=== PATIENT | female | born 1960 | race Caucasian/White ===

== ENCOUNTER 2017-07-25 07:57 | Day surgery (SDC) | payer OTHER | END 2017-07-25 22:35 | disposition home or self-care (01) | LOC: RAD 07:57 | PROVIDERS: Radiology Diagnostic Radiology | PROC: B02BYZZ Computerized Tomography (CT Scan) of Spinal Cord using Other Contrast (ICD-10-PCS; principal; 2017-07-25 11:30) | DX: M47.812 Spondylosis without myelopathy or radiculopathy, cervical region (principal); M47.22 Other spondylosis with radiculopathy, cervical region; J45.909 Unspecified asthma, uncomplicated; M54.2 Cervicalgia | CPT/HCPCS: 62302; 72126; Q9967 ==

== ENCOUNTER 2019-02-07 07:16 | Day surgery (SDC) | payer MEDICARE, OTHER ==
--- NOTE | 2019-02-07 10:53 | NUR ---
PT ARRIVED FROM RADIOLOGY VIA BED, A&O X3, DENIES ANY DISCOMFORT AT THIS TIME, BANDAID ON LOWER BACK C/D/I, OOB TO AMBUALTE TO THE BATHROOM, TOLERATED WELL, CONT. TO MONITOR FOR ANY CHANGES, ORIENTED TO ROOM LAYOUT AND CALL SYSTEM.
--- NOTE | 2019-02-07 12:53 | NUR ---
VSS, BANDAID ON LOWER BACK C/D/I, AMBULATED TO THE BATHROOM WITHOUT DIFFICULTY, DC INSTRUCTIONS GIVEN, VERBALIZED UNDERSTANDING, PRINTED DC INSTRUCTIONS GIVEN TO PT.
== END 2019-02-07 12:50 | disposition home or self-care (01) ==
LOC: CT 07:16 → EDSTATUS 08:00 → CT 08:00 → RAD 09:00 → SURS 10:58 → CT 12:50
DX: M51.14 Intervertebral disc disorders with radiculopathy, thoracic region (principal); M47.26 Other spondylosis with radiculopathy, lumbar region; M96.1 Postlaminectomy syndrome, not elsewhere classified; M48.03 Spinal stenosis, cervicothoracic region; M48.02 Spinal stenosis, cervical region; J43.9 Emphysema, unspecified
CPT/HCPCS: 62305; 72126; 72128; 72132; Q9967

== ENCOUNTER → 2020-11-04 | Outpatient (CLI) | payer MEDICARE, OTHER ==
[2020-11-08 10:11] LABS: CHLAMYDIA BY NAA Negative (Negative); GONOCOCCUS BY NAA Negative (Negative); TRICH VAG BY NAA Negative (Negative)
[2020-11-09 14:12] LABS: HPV 16 Negative (Negative); HPV 18 Negative (Negative); HPV OTHER HR TYPES Negative (Negative)
== END | disposition home or self-care (01) ==
LOC: LAB SHORT 19:49 → LAB 19:49
PROVIDERS: Nurse Practitioner
DX: Z12.4 Encounter for screening for malignant neoplasm of cervix (principal)
CPT/HCPCS: 87491; 87591; 87624; 87661; G0123

== ENCOUNTER → 2021-04-28 | Outpatient (CLI) | payer MEDICARE, OTHER | END | disposition home or self-care (01) | LOC: LAB SHORT 08:45 → LAB 08:45 | DX: J02.9 Acute pharyngitis, unspecified (principal) | CPT/HCPCS: 87081 ==

== ENCOUNTER → 2021-06-21 | Outpatient (CLI) | payer MEDICARE, OTHER | LOC: LAB SHORT 07:20 | DX: K21.9 Gastro-esophageal reflux disease without esophagitis (principal) | CPT/HCPCS: 87338 ==

== ENCOUNTER 2021-10-22 19:14 | Emergency (ER) | payer MEDICARE, OTHER ==
[~2021-10-22] VITALS: Ht 170.2 cm; Wt 83.9 kg
[2021-10-22 19:57] LABS: BASOPHILS ABSOLUTE AUTO 0.07 K/mm3 (0.00-0.23); BASOPHILS PERCENT AUTO 1 % (0-2); EOSINOPHILS PERCENT AUTO 4 % (0-6); Hematocrit 43.1 % (33.0-51.0); IMMATURE GRAN ABSOLUTE AUTO 0.01 K/mm3 (0.00-0.10); IMMATURE GRAN PERCENT AUTO 0 % (0-1); LYMPHOCYTES ABSOLUTE AUTO 2.43 K/mm3 (0.84-5.20); LYMPHOCYTES PERCENT AUTO 31 % (21-46); MONOCYTES ABSOLUTE AUTO 0.78 K/mm3 (0.16-1.47); MONOCYTES PERCENT AUTO 10 % (4-13); Mean Corpuscular HGB 30.7 pg (26.0-34.0); Mean Corpuscular HGB Conc 32.5 g/dL (31.5-36.5); Mean Corpuscular Volume 95 fL (80-100); Mean Platelet Volume 9.7 fL (9.1-12.4); NEUTROPHILS ABSOLUTE AUTO 4.35 K/mm3 (1.96-9.15); NEUTROPHILS PERCENT AUTO 55 % (41-73); Platelet Count 278 K/mm3 (150-400); RDW Coefficient Variation 13.2 % (11.7-14.2); RDW Standard Deviation 46.2 fL (35.1-46.3); Red Blood Cell Count 4.56 M/mm3 (3.80-5.20); White Blood Cell Count 7.94 K/mm3 (4.00-11.30)
[2021-10-22 20:15] LABS: Albumin/Globulin Ratio 1.1 (0.8-1.8); Bilirubin, Total 0.3 mg/dL (0.1-1.0); Bun/Creatinine Ratio 28.6 (12.0-20.0); Calcium, Blood 9.3 mg/dL (8.5-10.1); Creatinine, Blood 0.77 mg/dL (0.40-1.00); Globulin, Blood 3.7 g/dL (2.2-4.0); Potassium, Blood 3.7 mmol/L (3.5-5.5); Total Protein, Blood 7.7 g/dL (6.4-8.2)
== END 2021-10-22 23:44 | disposition home or self-care (01) ==
LOC: ER 19:14
PROVIDERS: Physician Assistant
DX: R07.89 Other chest pain (principal); Z88.5 Allergy status to narcotic agent; F17.200 Nicotine dependence, unspecified, uncomplicated
CPT/HCPCS: 36415; 71045; 80053; 84484; 85025; 93005; 93010

== ENCOUNTER → 2022-05-23 | Outpatient (CLI) | payer MEDICARE, OTHER ==
[~2022-05-23] MED LIST: ALBU90OI INH; ASA; CYCL10 PO; EXCEDRIN; FERROUS GLUCON324 M2 PO; LORA10ER PO; PANT40 PO; PRAM.5 PO; ZEBUTAL 50-3251 EAC1 PO
[2022-05-23 13:54] LABS: Anion Gap 7 mmol/L (6-16); Blood Urea Nitrogen 14 mg/dL (8-24); Bun/Creatinine Ratio 18.3 (12.0-20.0); CHOL/HDL RATIO 3.4; CO2, Blood 26 mmol/L (21-32); Calcium, Blood 9.1 mg/dL (8.5-10.1); Chloride, Blood 108 mmol/L (98-108); Cholesterol 227 mg/dL (50-200); Creatinine, Blood 0.77 mg/dL (0.40-1.00); Glomerular Filtration Rate 87 (60-); Glucose, Blood 95 mg/dL (70-99); HDL Cholesterol 66 mg/dL (>39); LDL/HDL RATIO 2.2; Low Density Lipoprotein Chol 147 mg/dL (0-110); Potassium, Blood 3.7 mmol/L (3.5-5.5); Sodium, Blood 141 mmol/L (136-145); Triglycerides 68 mg/dL (30-160); Very Low Density Lipoprot Chol 13 mg/dL (6-32)
== END | disposition home or self-care (01) ==
LOC: LAB SHORT 10:15
PROVIDERS: Nurse Practitioner Family
DX: E78.5 Hyperlipidemia, unspecified (principal); R25.2 Cramp and spasm; R73.03 Prediabetes
CPT/HCPCS: 80048; 80061; 83036

== ENCOUNTER 2022-11-11 19:05 | Emergency (ER) | payer MEDICARE, OTHER ==
[~2022-11-11] VITALS: Ht 170.2 cm; Wt 90.7 kg
[2022-11-11 19:29] VITALS: BP 131/72
[2022-11-11] MEDS ORDERED: CRUTCH2 XX (20:42)
== END 2022-11-11 20:59 | disposition home or self-care (01) ==
LOC: ER 19:05
DX: S92.354A Nondisplaced fracture of fifth metatarsal bone, right foot, initial encounter for closed fracture (principal); X50.1XXA Overexertion from prolonged static or awkward postures, initial encounter; Z88.5 Allergy status to narcotic agent; Z79.899 Other long term (current) drug therapy; K21.9 Gastro-esophageal reflux disease without esophagitis; M19.90 Unspecified osteoarthritis, unspecified site; E78.00 Pure hypercholesterolemia, unspecified; F17.200 Nicotine dependence, unspecified, uncomplicated
CPT/HCPCS: 29515; 73620; 99283-25

== ENCOUNTER → 2024-01-25 | Outpatient (CLI) | payer MEDICARE, OTHER ==
[~2024-01-25] MED LIST changes: +CRUTCH2 XX
[2024-01-25 15:01] LABS: BASOPHILS ABSOLUTE AUTO 0.05 K/mm3 (0.00-0.23); BASOPHILS PERCENT AUTO 1 % (0-2); EOSINOPHILS ABSOLUTE AUTO 0.11 K/mm3 (0.00-0.68); EOSINOPHILS PERCENT AUTO 1 % (0-6); Hematocrit 40.7 % (33.0-51.0); Hemoglobin 12.5 g/dL (11.5-16.0); IMMATURE GRAN ABSOLUTE AUTO 0.02 K/mm3 (0.00-0.10); IMMATURE GRAN PERCENT AUTO 0 % (0-1); LYMPHOCYTES ABSOLUTE AUTO 1.59 K/mm3 (0.84-5.20); LYMPHOCYTES PERCENT AUTO 21 % (21-46); MONOCYTES ABSOLUTE AUTO 0.72 K/mm3 (0.16-1.47); MONOCYTES PERCENT AUTO 9 % (4-13); Mean Corpuscular HGB 27.1 pg (26.0-34.0); Mean Corpuscular HGB Conc 30.7 g/dL (31.5-36.5); Mean Corpuscular Volume 88 fL (80-100); Mean Platelet Volume 10.3 fL (9.1-12.4); NEUTROPHILS PERCENT AUTO 68 % (41-73); Platelet Count 379 K/mm3 (150-400); RDW Coefficient Variation 14.6 % (11.7-14.2); RDW Standard Deviation 46.6 fL (35.1-46.3); Red Blood Cell Count 4.61 M/mm3 (3.80-5.20); White Blood Cell Count 7.69 K/mm3 (4.00-11.30)
[2024-01-25 17:25] LABS: Anion Gap 7 mmol/L (3-11); Blood Urea Nitrogen 20 mg/dL (8-24); Bun/Creatinine Ratio 27.1 (12.0-20.0); CHOL/HDL RATIO 3.6; CO2, Blood 26 mmol/L (21-32); Calcium, Blood 9.3 mg/dL (8.5-10.1); Chloride, Blood 108 mmol/L (98-108); Cholesterol 236 mg/dL (50-200); Creatinine, Blood 0.74 mg/dL (0.40-1.00); Glomerular Filtration Rate 90 (60-); Glucose, Blood 100 mg/dL (70-99); HDL Cholesterol 65 mg/dL (>39); LDL/HDL RATIO 2.4; Low Density Lipoprotein Chol 153 mg/dL (0-110); Sodium, Blood 137 mmol/L (136-145); Triglycerides 89 mg/dL (30-160); Very Low Density Lipoprot Chol 17 mg/dL (6-32)
== END ==
LOC: LAB 12:55 → LAB SHORT 12:55
PROVIDERS: Nurse Practitioner Family
DX: E78.5 Hyperlipidemia, unspecified (principal); R73.03 Prediabetes
CPT/HCPCS: 80048; 80061; 83036; 85025

== ENCOUNTER 2025-03-26 18:49 | Inpatient (IN) | payer MEDICARE, OTHER ==
[~2025-03-26] VITALS: Ht 170.2 cm; Wt 103.4 kg
[~2025-03-26 18:49] MED LIST changes: +AMIT75 PO; +ATOR20; +OMEP20ER PO
[2025-03-26] MEDS ORDERED: ALBU2.5V5 INH (19:41)
[2025-03-26] MEDS ORDERED: ALBU90OI INH (19:41)
[2025-03-26] MEDS ORDERED: Ipratropium/Albuterol SulF 2.5-0.5MG/3 ML Amp INH ONE (20:00)
[2025-03-26] MEDS ORDERED: Albuterol 2.5 MG/3 ML VIAL INH SCH (20:00)
[2025-03-26 20:13] LABS: pH Blood Venous 7.37 (7.34-7.37)
[2025-03-26 21:00] LABS: BASOPHILS ABSOLUTE AUTO 0.10 K/mm3 (0.00-0.23); BASOPHILS PERCENT AUTO 1 % (0-2); EOSINOPHILS ABSOLUTE AUTO 0.28 K/mm3 (0.00-0.68); EOSINOPHILS PERCENT AUTO 3 % (0-6); Hematocrit 36.9 % (33.0-51.0); Hemoglobin 11.5 g/dL (11.5-16.0); IMMATURE GRAN ABSOLUTE AUTO 0.03 K/mm3 (0.00-0.10); IMMATURE GRAN PERCENT AUTO 0 % (0-1); LYMPHOCYTES ABSOLUTE AUTO 2.47 K/mm3 (0.84-5.20); LYMPHOCYTES PERCENT AUTO 25 % (21-46); MONOCYTES ABSOLUTE AUTO 0.95 K/mm3 (0.16-1.47); MONOCYTES PERCENT AUTO 9 % (4-13); Mean Corpuscular HGB Conc 31.2 g/dL (31.5-36.5); Mean Corpuscular Volume 94 fL (80-100); NEUTROPHILS ABSOLUTE AUTO 6.26 K/mm3 (1.96-9.15); NEUTROPHILS PERCENT AUTO 62 % (41-73); NRBC ABSOLUTE 0.00 K/mm3 (0.00-0.02); NRBC Auto 0.0 /100 WBC (0.0-0.2); Platelet Count 305 K/mm3 (150-400); RDW Coefficient Variation 15.3 % (11.7-14.2); RDW Standard Deviation 52.9 fL (35.1-46.3)
[2025-03-26 21:26] LABS: Alanine Aminotransfer (ALT/SGP 48.0 U/L (12-78); Albumin, Blood 3.3 g/dL (3.4-5.0); Albumin/Globulin Ratio 1.0 (0.8-1.8); Anion Gap 6.0 mmol/L (3-11); Aspartate Aminotrans (AST/SGOT 24.0 U/L (12-37); Bilirubin, Total 0.2 mg/dL (0.1-1.0); Blood Urea Nitrogen 20.0 mg/dL (8-24); CO2, Blood 28.0 mmol/L (21-32); Calcium, Blood 8.8 mg/dL (8.5-10.1); Chloride, Blood 108.0 mmol/L (98-108); Creatinine, Blood 0.82 mg/dL (0.40-1.00); Globulin, Blood 3.2 g/dL (2.2-4.0); Glucose, Blood 117.0 mg/dL (70-99); Magnesium, Blood 2.3 mg/dL (1.6-2.4); Potassium, Blood 3.9 mmol/L (3.5-5.5); Sodium, Blood 138.0 mmol/L (136-145); Total Protein, Blood 6.5 g/dL (6.4-8.2)
[2025-03-26] MEDS ORDERED: Ipratropium/Albuterol SulF 2.5-0.5MG/3 ML Amp INH SCH (23:55)
[2025-03-27] MEDS ORDERED: FLU VACC TS2025(65UP)/MF59C/PF 45 MCG/0.5 ML SYRINGE IM SCH (00:05)
[2025-03-27] MEDS ORDERED: FERSU300 PO (01:33)
[2025-03-27 01:40] VITALS: BP 138/71
[2025-03-27] MEDS ORDERED: Albuterol 2.5 MG/3 ML VIAL INH PRN (01:45)
--- NOTE | 2025-03-27 02:10 | NUR ---
ADMISSION NOTE PT ARRIVED FROM ED VIA GURNEY. PT AMBULATED TO BED WITH SBA AT 0115. PT IS ON 3L NC. PT ORIENTED TO ROOM, STAFF, AND CALL LIGHT. PT HAD A BREATHING TX SHORTLY AFTER ADMISSION. ADMISSION CHARTING COMPLETED. PT PROVIDED WITH SANDWICH, JUICE, AND WATER. CALL LIGHT WITHIN REACH.
[2025-03-27 03:50] VITALS: BP 134/65
[2025-03-27 04:23] LABS: BASOPHILS ABSOLUTE AUTO 0.02 K/mm3 (0.00-0.23); BASOPHILS PERCENT AUTO 0 % (0-2); EOSINOPHILS ABSOLUTE AUTO 0.00 K/mm3 (0.00-0.68); EOSINOPHILS PERCENT AUTO 0 % (0-6); Hematocrit 37.0 % (33.0-51.0); Hemoglobin 11.7 g/dL (11.5-16.0); IMMATURE GRAN ABSOLUTE AUTO 0.05 K/mm3 (0.00-0.10); IMMATURE GRAN PERCENT AUTO 1 % (0-1); LYMPHOCYTES ABSOLUTE AUTO 0.44 K/mm3 (0.84-5.20); LYMPHOCYTES PERCENT AUTO 5 % (21-46); MONOCYTES ABSOLUTE AUTO 0.06 K/mm3 (0.16-1.47); MONOCYTES PERCENT AUTO 1 % (4-13); Mean Corpuscular HGB Conc 31.6 g/dL (31.5-36.5); Mean Corpuscular Volume 92 fL (80-100); NEUTROPHILS ABSOLUTE AUTO 9.00 K/mm3 (1.96-9.15); NEUTROPHILS PERCENT AUTO 94 % (41-73); NRBC ABSOLUTE 0.00 K/mm3 (0.00-0.02); NRBC Auto 0.0 /100 WBC (0.0-0.2); Platelet Count 301 K/mm3 (150-400); RDW Coefficient Variation 14.9 % (11.7-14.2); RDW Standard Deviation 50.8 fL (35.1-46.3)
--- NOTE | 2025-03-27 04:26 | NUR ---
SHIFT SUMMARY PT A A&OX4, PLEASANT AND COOPERATIVE WITH CARE. PT WAS AN ADMIT FROM THE ED AND CAME TO UNIT AT APPROX 0115. PT HAS ADVENTITIOUS LUNG SOUNDS TO THE UPPER LOBES AND HAS A COUGH THAT PRODUCES CLEAR THICK MUCUS. PT HAS Q4 BREATHING TREATMENTS. PT IS A SBA TO THE BATHROOM, DOES GET SOB WITH EXERTION. NO ACUTE CHANGES SINCE ADMISSION NOTE. PT IS ON 3L NC AND MAINTAINING ABOVE 95%. PT RESTED T/O SHIFT WITH CALL LIGHT WITHIN REACH, AND CALLS APPROPRIATELY.
[2025-03-27 04:51] LABS: Alanine Aminotransfer (ALT/SGP 48.0 U/L (12-78); Albumin, Blood 3.1 g/dL (3.4-5.0); Albumin/Globulin Ratio 0.8 (0.8-1.8); Anion Gap 12.0 mmol/L (3-11); Aspartate Aminotrans (AST/SGOT 22.0 U/L (12-37); Bilirubin, Total 0.2 mg/dL (0.1-1.0); Blood Urea Nitrogen 18.0 mg/dL (8-24); CO2, Blood 23.0 mmol/L (21-32); Calcium, Blood 9.0 mg/dL (8.5-10.1); Chloride, Blood 106.0 mmol/L (98-108); Creatinine, Blood 0.72 mg/dL (0.40-1.00); Globulin, Blood 3.7 g/dL (2.2-4.0); Glucose, Blood 245.0 mg/dL (70-99); Magnesium, Blood 2.1 mg/dL (1.6-2.4); Potassium, Blood 4.1 mmol/L (3.5-5.5); Sodium, Blood 137.0 mmol/L (136-145); Total Protein, Blood 6.8 g/dL (6.4-8.2)
[2025-03-27 07:13] VITALS: BP 130/71
[2025-03-27] MEDS ORDERED: Enoxaparin 40 MG/0.4 ML SYR SC SCH (09:00)
[2025-03-27] MEDS ORDERED: Albuterol HFA200 ACT/6.7 GM INH INH PRN (09:35)
[2025-03-27] MEDS ORDERED: Formoterol/Mometasone MDI 5/200 mcg 13 GM INH SCH (09:40)
[2025-03-27] MEDS ORDERED: TIZANIDINE HCL2 M1 PO (10:42)
[2025-03-27] MEDS ORDERED: PRAMIPEXOLE DIHY1 MG PO (10:43)
[2025-03-27] MEDS ORDERED: ROSUVASTATIN CAL5 MG PO (10:43)
[2025-03-27] MEDS ORDERED: BUTALB-ACETAMI1 EAC5 PO (10:44)
--- NOTE | 2025-03-27 11:16 | NUR ---
"Spiritual Care Visit | Pt. request Pt. is awake in bed when she welcomed my visit. Pt. is pleasant, and quickly begins to share about the meaningfulness of [employer] [facility]. Listen with interest and interaction as I continued facilitated a lengthy life review. Pt. displayed evidence of trust and engagement. Prayed with the Pt. Pt. verbalized gratitude fo rthe spiritual care visit."
[2025-03-27] MEDS ORDERED: Insulin Human Lispro 100 Units/ML 3ML Syringe SC SCH (12:30)
[2025-03-27 15:05] VITALS: BP 130/68
--- NOTE | 2025-03-27 19:22 | NUR ---
SHIFT SUMMARY PT A&OX4. PT ADMITTED DUE TO ACUTE RESP FAIL WITH HYPOXIA AND HYPERCAPNIA. PT REPORTS NO CHEST PAIN. PT REPORTS GENERALIZED TADEO/CHRONIC BACK PAIN. PAIN MANAGED PER EMAR. PT ON RA AT BASE LINE. VSS. PT STARTED ON SOLUMEDEROL TODAY. INCENTIVE SPIROMETER AND FLUTTER THERAPY AT BEDSIDE, PT EDUCATED ON USE AND PERIODICALLY USES IT. PT NOW ACHS BLOOD SUGAR CHECKS, INSULIN GIVEN PER SCALE. PT ON 2L OF O2 VIA N/C. PT HAS CONT PULSE OX ON. SPO2 95%. PT INDEPENDENT IN ROOM. REP THERAPY INVOLVED WITH TREATMENT. PT GETS SCHEDULED NEB TREATMENTS, PT IN BED, BED IN LOWEST POSITION, CALL LIGHT IN REACH. BED LOCKED, PT CALLS APPROPRIATE.
[2025-03-27 19:25] VITALS: BP 124/108
[2025-03-27 20:20] VITALS: BP 129/66
--- NOTE | 2025-03-28 03:44 | NUR ---
SHIFT SUMMARY PT IS A&OX4, PLEASANT AND COOPERATIVE WITH CARE. PT IS ON 2L NC AND IS MAITAINING ABOVE 92%. CHANGES MADE TO PT MEDICATION LIST. PT LUNG HAVE ADVENTITIOUS LUNG SOUNDS, AND SOB. PT HAS BEEN AD GAVI IN ROOM. PT REPORTED A HEADACHE EARLIER IN THE SHIFT, WAS MEDICATED PER EMAR. NO ACUTE CHANGES THIS SHIFT. PT RESTED T/O SHIFT WITH EVEN AND UNLABORED RESPIRATIONS. CALL LIGHT WITHIN REACH.
[2025-03-28 04:03] VITALS: BP 131/73
[2025-03-28 05:24] LABS: BASOPHILS ABSOLUTE AUTO 0.02 K/mm3 (0.00-0.23); BASOPHILS PERCENT AUTO 0 % (0-2); EOSINOPHILS ABSOLUTE AUTO 0.00 K/mm3 (0.00-0.68); EOSINOPHILS PERCENT AUTO 0 % (0-6); Hematocrit 35.6 % (33.0-51.0); Hemoglobin 11.0 g/dL (11.5-16.0); IMMATURE GRAN ABSOLUTE AUTO 0.17 K/mm3 (0.00-0.10); IMMATURE GRAN PERCENT AUTO 1 % (0-1); LYMPHOCYTES ABSOLUTE AUTO 0.88 K/mm3 (0.84-5.20); LYMPHOCYTES PERCENT AUTO 6 % (21-46); MONOCYTES ABSOLUTE AUTO 0.48 K/mm3 (0.16-1.47); MONOCYTES PERCENT AUTO 3 % (4-13); Mean Corpuscular HGB Conc 30.9 g/dL (31.5-36.5); Mean Corpuscular Volume 93 fL (80-100); NEUTROPHILS ABSOLUTE AUTO 13.16 K/mm3 (1.96-9.15); NEUTROPHILS PERCENT AUTO 89 % (41-73); NRBC ABSOLUTE 0.00 K/mm3 (0.00-0.02); NRBC Auto 0.0 /100 WBC (0.0-0.2); Platelet Count 322 K/mm3 (150-400); RDW Coefficient Variation 15.3 % (11.7-14.2); RDW Standard Deviation 51.7 fL (35.1-46.3)
[2025-03-28 05:47] LABS: Albumin, Blood 3.0 g/dL (3.4-5.0); Anion Gap 7 mmol/L (3-11); Blood Urea Nitrogen 25 mg/dL (8-24); CO2, Blood 28 mmol/L (21-32); Calcium, Blood 9.0 mg/dL (8.5-10.1); Chloride, Blood 107 mmol/L (98-108); Creatinine, Blood 0.70 mg/dL (0.40-1.00); Glucose, Blood 164 mg/dL (70-99); Phosphorus, Blood 3.2 mg/dL (2.5-4.9); Potassium, Blood 4.5 mmol/L (3.5-5.5); Sodium, Blood 137 mmol/L (136-145)
[2025-03-28 07:57] VITALS: BP 115/76
[2025-03-28] MEDS ORDERED: Fluticasone 0.05% Nasal Spray SCH (09:00)
[2025-03-28 16:07] VITALS: BP 122/68
--- NOTE | 2025-03-28 18:18 | NUR ---
SHIFT SUMMARY PT IS A/OX4. INDEPENDENT IN THE ROOM. PT IS CURRENTLY ON 1L NC, SATS >92% ON CONT PULSE OX. WHEN AMBULATING IN THE [facility] THIS AFTERNOON, PT DESATS TO 88% ON RA, HOWEVER PT REPORTS FEELING MINIMALLY "OUT OF BREATH". PT IS PLEASANT AND COOPERATIVE WITH CARE AND CALLS APPROPRIATELY.
[2025-03-28 19:42] VITALS: BP 150/88
[2025-03-29 04:25] VITALS: BP 107/70
[2025-03-29 04:54] LABS: BASOPHILS ABSOLUTE AUTO 0.03 K/mm3 (0.00-0.23); BASOPHILS PERCENT AUTO 0 % (0-2); EOSINOPHILS ABSOLUTE AUTO 0.00 K/mm3 (0.00-0.68); EOSINOPHILS PERCENT AUTO 0 % (0-6); Hematocrit 38.4 % (33.0-51.0); Hemoglobin 11.9 g/dL (11.5-16.0); IMMATURE GRAN ABSOLUTE AUTO 0.16 K/mm3 (0.00-0.10); IMMATURE GRAN PERCENT AUTO 1 % (0-1); LYMPHOCYTES ABSOLUTE AUTO 0.82 K/mm3 (0.84-5.20); LYMPHOCYTES PERCENT AUTO 6 % (21-46); MONOCYTES ABSOLUTE AUTO 0.49 K/mm3 (0.16-1.47); MONOCYTES PERCENT AUTO 3 % (4-13); Mean Corpuscular HGB Conc 31.0 g/dL (31.5-36.5); Mean Corpuscular Volume 94 fL (80-100); NEUTROPHILS ABSOLUTE AUTO 13.50 K/mm3 (1.96-9.15); NEUTROPHILS PERCENT AUTO 90 % (41-73); NRBC ABSOLUTE 0.00 K/mm3 (0.00-0.02); NRBC Auto 0.0 /100 WBC (0.0-0.2); Platelet Count 354 K/mm3 (150-400); RDW Coefficient Variation 15.4 % (11.7-14.2); RDW Standard Deviation 53.1 fL (35.1-46.3)
[2025-03-29 05:23] LABS: Albumin, Blood 3.2 g/dL (3.4-5.0); Anion Gap 9 mmol/L (3-11); Blood Urea Nitrogen 25 mg/dL (8-24); CO2, Blood 27 mmol/L (21-32); Calcium, Blood 9.3 mg/dL (8.5-10.1); Chloride, Blood 106 mmol/L (98-108); Creatinine, Blood 0.75 mg/dL (0.40-1.00); Glucose, Blood 158 mg/dL (70-99); Phosphorus, Blood 3.9 mg/dL (2.5-4.9); Potassium, Blood 4.6 mmol/L (3.5-5.5); Sodium, Blood 137 mmol/L (136-145)
--- NOTE | 2025-03-29 06:24 | NUR ---
SHIFT SUMMARY AT START OF SHIFT PT ON O2 1L NC- PT WEANED TO ROOM AIR AFTER MIDNIGHT WITH SATS >90%. PT STATES IMPROVEMENT OF SOB WHEN AMBULATING. PT INDEPENDENT IN ROOM WITH STEADY GAIT. PT SLEPT INTERMITTENTLY DURING THE NIGHT.
[2025-03-29 07:29] VITALS: BP 122/63
[2025-03-29 14:56] VITALS: BP 143/79
--- NOTE | 2025-03-29 16:58 | NUR ---
END OF SHIFT. PATIENT A&O4 AND IND IN ROOM. SHOWERED TODAY AND WORKED WITH PHYSICAL THERAPY. PATIENT STATES FEELING BETTER. HOPEFULLY TO DISCHARGE TOMORROW. NO OTHER CONCERNS FOR THIS SIHFT.
[2025-03-29 20:08] VITALS: BP 116/62
--- NOTE | 2025-03-30 03:00 | NUR ---
ASSUMPTION OF CARE RECEIVED REPORT FROM MELODIE NIETO TO ASSUME CARE FOR THIS PT. PT WAS UP TO RESTROOM RECENTLY WITH A STEADY GAIT. PT IS ON RA AT THIS TIME SATTING AT 93% AT REST, WITH AMBULATION PT MAINTAINED 88-89% PT IS RESTING COMFORTABLY IN BED, WITH EVEN AND UNLABORED RESPIRATIONS. BED IN THE LOWEST POSITION AND CALL LIGHT WITHIN REACH.
--- NOTE | 2025-03-30 03:13 | NUR ---
SHIFT SUMMARY PATIENT IS ALERT AND ORIENTED. PATIENT HAS HAD NO ACUTE EVENTS THIS SHIFT. VITAL SIGNS REVIEWED. PATIENT HAS BEEN ON ROOM AIR AND SATTING ABOVE 92 PERCENT ALL SHIFT. PATIENT HAS HAD NO COMPLAINTS OF SOB, NAUSEA, VOMITTING OR PAIN THIS SHIFT. BED IN LOCKED AND LOWEST POSITION. CALL LIGHT IN PLACE.
[2025-03-30 04:54] VITALS: BP 108/62
[2025-03-30 05:25] LABS: BASOPHILS ABSOLUTE AUTO 0.02 K/mm3 (0.00-0.23); BASOPHILS PERCENT AUTO 0 % (0-2); EOSINOPHILS ABSOLUTE AUTO 0.00 K/mm3 (0.00-0.68); EOSINOPHILS PERCENT AUTO 0 % (0-6); Hematocrit 36.6 % (33.0-51.0); Hemoglobin 11.8 g/dL (11.5-16.0); IMMATURE GRAN ABSOLUTE AUTO 0.27 K/mm3 (0.00-0.10); IMMATURE GRAN PERCENT AUTO 2 % (0-1); LYMPHOCYTES ABSOLUTE AUTO 0.99 K/mm3 (0.84-5.20); LYMPHOCYTES PERCENT AUTO 7 % (21-46); MONOCYTES ABSOLUTE AUTO 0.69 K/mm3 (0.16-1.47); MONOCYTES PERCENT AUTO 5 % (4-13); Mean Corpuscular HGB Conc 32.2 g/dL (31.5-36.5); Mean Corpuscular Volume 92 fL (80-100); NEUTROPHILS ABSOLUTE AUTO 11.90 K/mm3 (1.96-9.15); NEUTROPHILS PERCENT AUTO 86 % (41-73); NRBC ABSOLUTE 0.00 K/mm3 (0.00-0.02); NRBC Auto 0.0 /100 WBC (0.0-0.2); Platelet Count 356 K/mm3 (150-400); RDW Coefficient Variation 15.1 % (11.7-14.2); RDW Standard Deviation 50.8 fL (35.1-46.3)
[2025-03-30 05:37] LABS: Anion Gap 8.0 mmol/L (3-11); Blood Urea Nitrogen 27.0 mg/dL (8-24); CO2, Blood 26.0 mmol/L (21-32); Calcium, Blood 8.8 mg/dL (8.5-10.1); Chloride, Blood 107.0 mmol/L (98-108); Creatinine, Blood 0.72 mg/dL (0.40-1.00); Glucose, Blood 158.0 mg/dL (70-99); Potassium, Blood 4.2 mmol/L (3.5-5.5); Sodium, Blood 137.0 mmol/L (136-145)
--- NOTE | 2025-03-30 05:42 | NUR ---
SHIFT SUMMARY PT IS A&OX4, PLEASANT AND COOPERATIVE WITH CARE. PT RECEIVED BREATHING TX T/O SHIFT, AND VERBALIZED FEELING BETTER AFTER BREATHING TX. PT AD GAVI IN THE ROOM. PT SATS MAINTAINED 88-89% ON ROOM AIR WITH AMBULATION AND MAINTAINED AT 93% WHEN AT REST. PT REPORTS FEELING MORE STEADY ON FEET WHEN AMBULATING, BUT STILL EXPERIENCES CHEST TIGHTNESS OCCASSIONALLY. PT RESTED T/O SHIFT WITH EVEN AND UNLABORED RESPIRATIONS. BED IN THE LOWEST POSITION AND CALL LIGHT WITHIN REACH.
[2025-03-30 07:10] VITALS: BP 129/65
[2025-03-30] MEDS ORDERED: FLUT.05NI (11:17)
[2025-03-30] MEDS ORDERED: GUAI600T33 PO (11:18)
[2025-03-30] MEDS ORDERED: IPRAT-ALBUT 0.5-3 ML INH (11:18)
[2025-03-30] MEDS ORDERED: PRED20 PO (11:19)
[2025-03-30] MEDS ORDERED: Medication Education, Discharge Education XX ONE (11:45)
--- NOTE | 2025-03-30 14:25 | NUR ---
DISCHARGE PT OXYGEN ARRIVED. PT D/C ORDES RECEIVED. IV REMOVED. CARE ONGOING.
== END 2025-03-30 14:25 | disposition home or self-care (01) | DRG 189 ==
LOC: ER 18:49 → MEDS 18:50 → ENPENDDIS 03-30 11:09 → MEDS 03-30 14:25
PROVIDERS: Student in an Organized Health Care Education/Training Program; ADMIT Student in an Organized Health Care Education/Training Program
DX: J96.01 Acute respiratory failure with hypoxia (principal); J45.901 Unspecified asthma with (acute) exacerbation; J96.02 Acute respiratory failure with hypercapnia; K21.9 Gastro-esophageal reflux disease without esophagitis; F41.9 Anxiety disorder, unspecified; M19.90 Unspecified osteoarthritis, unspecified site; M54.59 Other low back pain; G89.29 Other chronic pain; E11.9 Type 2 diabetes mellitus without complications; M79.7 Fibromyalgia; G25.81 Restless legs syndrome; J20.9 Acute bronchitis, unspecified; E78.5 Hyperlipidemia, unspecified; M54.12 Radiculopathy, cervical region; G43.909 Migraine, unspecified, not intractable, without status migrainosus; G47.00 Insomnia, unspecified; J98.4 Other disorders of lung; K59.00 Constipation, unspecified; R04.0 Epistaxis; Z87.01 Personal history of pneumonia (recurrent); Z98.1 Arthrodesis status; Z90.49 Acquired absence of other specified parts of digestive tract; Z86.16 Personal history of COVID-19; Z85.118 Personal history of other malignant neoplasm of bronchus and lung; Z87.891 Personal history of nicotine dependence; Z98.890 Other specified postprocedural states; Z79.899 Other long term (current) drug therapy; Z88.5 Allergy status to narcotic agent; Z88.8 Allergy status to other drugs, medicaments and biological substances
CPT/HCPCS: 36415; 71045; 71260; 80048; 80053; 80069; 82803; 82947; 83036; 83735; 85025; 93005; 93010; 94640; 94664; 94762; 96372; 96374; 97116; 97161; 99285-25; A9270; G0378; J1650; J2919; J7512; Q9967